=== PATIENT | female | born 1940 | race Caucasian/White ===

== ENCOUNTER 2016-07-30 22:34 | Inpatient (IN) | payer MEDICARE, BC ==
--- NOTE | ~2016-07-30 | HP ---
History And Physical [address] [address] NAME: AXEL CAMPBELL : 38 STATUS : ADM IN [facility]#: [id number] AGE: 75 ADM/REG DATE : 07/31/16 MR#: [id number] REPORT SERV DATE: 07/31/16 DICTATED BY: AG PIPER DATE: 07/31/16 REPORT STATUS : Draft TRANSCRIBED BY: MODL DATE: 07/31/16 DATE OF ADMISSION: 07/31/2016 CHIEF COMPLAINT: A 75-year-old female, presenting with shortness of breath and chest pain. HISTORY OF PRESENT ILLNESS: The patient's history was obtained through careful interview with the patient, coupled with review of [facility] and [facility] medical records. The patient just on 07/27/2016 began to develop a nonproductive cough, increasing shortness of breath characterized by dyspnea on exertion. She describes subjective fevers and chills and becoming "sopping wet" from diaphoresis. She describes chest discomfort, felt diffusely and aching quality, right greater than left, 8 to 9/10 severity, exacerbated by coughing and breathing. No confusion. No lightheadedness. No diarrhea. No nausea or vomiting. She admits her diabetes has been poorly controlled recently with blood sugars often in the 200s and 300s. REVIEW OF SYSTEMS: Otherwise, a 14-point review of systems was obtained and was negative. PAST MEDICAL HISTORY: 1. DVT/pulmonary embolism in 2013, on chronic anticoagulation. 2. Diabetes. 3. Stasis ulcers. 4. Gout. 5. Anemia. 6. Dyslipidemia. 7. B12 deficiency. 8. MRSA. 9. Foot infection with osteomyelitis. PAST SURGICAL HISTORY: 1. Left heel debridement. 2. CABG in 2006. 3. Bilateral knee surgery. 4. Cholecystectomy. 5. Appendectomy. 6. Tubal ligation. 7. Left carpal tunnel release. ALLERGIES: NO KNOWN DRUG ALLERGIES. History And Physical [address] [address] NAME: AXEL CAMPBELL : 38 STATUS : ADM IN PAT#: [id number] AGE: 75 ADM/REG DATE : 07/31/16 MR#: [id number] REPORT SERV DATE: 07/31/16 DICTATED BY: AG PIPER DATE: 07/31/16 REPORT STATUS : Draft TRANSCRIBED BY: JACOBY DATE: 07/31/16 SOCIAL HISTORY: Quit smoking in her 30s. No alcohol use. She is a . Now has been rehabilitating at [facility] in [place], [place]. Has six children. FAMILY HISTORY: Adopted. CURRENT MEDICATIONS: Include allopurinol 150 mg p.o. daily, vitamin C, vitamin B complex, Invokana 300 mg p.o. daily, vitamin D, vitamin B12, diclofenac 75 mg p.o. b.i.d., folic acid, Neurontin 300 mg p.o. b.i.d., sliding scale insulin, Lantus 32 units subcutaneous at bedtime, Novolin N 28 units subcutaneous before breakfast, Claritin 10 mg p.o. daily, Lopressor 25 mg p.o. b.i.d., eye drops, Percocet p.r.n., MiraLAX packet, Coumadin alternating doses of 2.5 and 5 mg every other day. PHYSICAL EXAMINATION: VITAL SIGNS: Temperature 98.8, pulse 93, blood pressure 117/81, respiratory rate 22, O2 saturation 94% on 2 L nasal cannula. GENERAL: An ill-appearing female, but in no overt distress. HEENT: Pupils equal, round, and reactive to light. No conjunctival pallor. No scleral icterus. Nares are patent. Oropharynx is clear of obstruction. Moist mucous membranes. NECK: Trachea midline. No thyromegaly. LYMPH: No cervical lymphadenopathy. No supraclavicular lymphadenopathy. RESPIRATORY: The patient has crackles and rales on examination. I do not appreciate focal egophony, but something of her exam does have a "wet" character. No active wheezes at this time. The patient has a labored respiratory effort. CARDIOVASCULAR: Regular rate and rhythm. No murmurs, rubs, or gallops. There is some mild lower extremity edema, but it is nonpitting. Symmetrical. ABDOMEN: Seems distended by my examination. No tympanic resonance on percussion. Nontender throughout. No hepatosplenomegaly. DERMATOLOGICAL: Warm and dry extremities. No pallor. No cyanosis. PSYCHIATRIC: Normal affect. Good mood. Alert and oriented x3. LABORATORY DATA: ABG demonstrates a pH 7.38, a PaCO2 of 49, a PaO2 of 76, and a bicarb of 28. White blood cell count 9.3, hemoglobin 13, hematocrit 40, platelets 234. Sodium 142, potassium 5.2, chloride 107, bicarb 31, BUN 38, creatinine 1.61, glucose 282. Brain natriuretic peptide 137. Troponin negative. Albumin 2.6. Lipase 303. Lactic acid 1.7. INR 2.3. Liver enzymes within normal limits. STUDIES: 1. Chest x-ray by my own evaluation shows right greater than left lower lung infiltrates and right hilar disease, bilateral pleural effusions. 2. EKG by my own evaluation shows sinus rhythm, left axis deviation, T-wave inversions in leads V2 through V6, II, III, aVF. ASSESSMENT AND PLAN: 1. Hypoxic respiratory failure. I believe the total picture is not completely clear, something out of presentation seems likely to involve pneumonia, yet the patient has a normal white blood cell count and likely there is some volume overload by exam and presentation, but unimpressive brain natriuretic peptide. History And Physical [address] [address] NAME: AXEL CAMPBELL : 38 STATUS : ADM IN [facility]#: [id number] AGE: 75 ADM/REG DATE : 07/31/16 MR#: [id number] REPORT SERV DATE: 07/31/16 DICTATED BY: AG PIPER DATE: 07/31/16 REPORT STATUS : Draft TRANSCRIBED BY: JACOBY DATE: 07/31/16 2. Facility-acquired pneumonia. Check blood cultures. Place on IV vancomycin, IV cefepime. 3. Volume overload. Check an echocardiogram to define function (no previous history of congestive heart failure). Place on IV diuretic empirically. 4. Uncontrolled diabetes. Check hemoglobin A1c. Increase basal insulin dosage and place on aggressive sliding scale insulin. 5. History of pulmonary embolism with good INR. Continue Coumadin. KPL/MODL Ag Piper M.D. / [id number] CC: MD Sridhar Ruth M.D.
--- NOTE | ~2016-07-30 | DS ---
Discharge Summary [address] [place]. [address] NAME: AXEL CAMPBELL : 38 STATUS : DIS IN PAT#: [id number] AGE: 75 ADM/REG DATE : 07/31/16 MR#: [id number] REPORT SERV DATE: 08/04/16 DICTATED BY: BURT PETE DATE: 08/03/16 REPORT STATUS : Draft TRANSCRIBED BY: JACOBY DATE: 08/03/16 ADMISSION DATE: 07/31/2016 DISCHARGE DATE: 08/03/2016 DISCHARGE DIAGNOSES: 1. Ffwrf-wo-xvehhni hypercapnic hypoxic respiratory failure. 2. Qyppo-na-kmqiykr diastolic heart failure. 3. Urinary tract infection. 4. Insulin-dependent diabetes type 2. 5. History of deep vein thrombosis/pulmonary embolus on Coumadin with INR of 2.1. 6. Chronic kidney disease stage 3. 7. Hypertension. DISCHARGE MEDICATIONS: Include: 1. Allopurinol 150 mg p.o. daily. 2. GenTeal drop every four hours p.r.n. 3. Vitamin D3 at 2000 units p.o. daily. 4. Folic acid 1 mg p.o. daily. 5. Neurontin 300 mg p.o. b.i.d. 6. Insulin glargine 32 units subcu at bedtime. 7. Insulin Aspart sliding scale as directed. 8. Novolin N 28 units subcu before breakfast. 9. Claritin 10 mg in the morning. 10.Lopressor 25 mg p.o. b.i.d. 11.Mycostatin topical powder b.i.d. 12.MiraLAX powder Saturday and Saturday. 13.Dotty-Colace tab 8.6 mg one tab daily. 14.Coumadin 5 mg Saturday, Saturday, and Saturday. 15.Coumadin 2.5 mg Saturday, , Saturday, and Saturday. 16.Vitamin B12 at 1000 mcg p.o. daily. 17.Invokana 300 mg p.o. daily. 18.Nephro-Karli one tab p.o. daily. 19.Vitamin C 500 mg p.o. b.i.d. 20.Voltaren 75 mg p.o. b.i.d. p.r.n. 21. 0.5 inch at bedtime. 22.Percocet 5/325 p.o. every four hours p.r.n. 23.Ventolin 90 mcg HFA one to two puffs q.4 to 6 hours p.r.n. 24.Lasix 20 mg p.o. daily. 25.Levaquin 750 mg p.o. daily. 26.Advair Diskus 250/50 mcg one puff inhaled b.i.d. DISPOSITION AND FOLLOWUP: The patient medically stable to return to rehab facility. Follow up with primary care physician in one week. HISTORY AND PHYSICAL: Per initial assessment. Discharge Summary [address] [address] NAME: AXEL CAMPBELL : 38 STATUS : DIS IN PAT#: [id number] AGE: 75 ADM/REG DATE : 07/31/16 MR#: [id number] REPORT SERV DATE: 08/04/16 DICTATED BY: BURT PETE DATE: 08/03/16 REPORT STATUS : Draft TRANSCRIBED BY: JACOBY DATE: 08/03/16 DISCHARGE VITALS: Temperature 96.9, heart rate 88, blood pressure 121/59, respiratory rate 18, O2 saturation 93 on room air. DISCHARGE LABS: WBC of 8.7, hemoglobin 13.4, hematocrit 40.7, platelets 255. INR 2.1. Sodium 138, potassium 3.9, chloride 100, bicarb 32, BUN 53, creatinine 1.76, magnesium 2.2. IMAGING: Chest x-ray, 07/30/2016, impression, pulmonary vascular congestion. Chest x-ray, 08/02/2016, one prior CABG and evidence of previous granulomatous disease. No acute process demonstrated radiographically. Echocardiogram, impression, normal left ventricle size with low normal ventricular systolic function. EF 50%. Mild left ventricular diastolic dysfunction. Normal ventricle size and systolic function. Mild aortic mitral and tricuspid regurgitation. No pericardial effusion. No evidence of pleural effusion. HOSPITAL COURSE: A 75-year-old woman with a past medical history of chronic diastolic heart failure and history of DVT and PE, on Coumadin, comes into the ED complaining of shortness of breath and chest pain. She had been feeling subjective fevers and chills. On admission, evidence of hypoxic hypercapnic respiratory failure. Multifactorial. Initially question of pneumonia. Had some evidence of acute diastolic heart failure. The patient was admitted and placed on IV vancomycin and cefepime, which we continued throughout the course of the hospitalization. Blood cultures negative. Urine culture positive. The patient was diuresed. As described above, chest x-ray by the day of discharge, without any evidence of vascular congestion. Echocardiogram without any wall motion abnormalities. On discharge, we will continue low-dose Lasix. Follow up with primary care physician in one week to recheck renal function. Hypercapnia suggests some obstructive lung disease, although no diagnosis as such. Recommend PCP refer for pulmonary function test as an outpatient. The patient will be discharged on rescue inhalers Advair for maintenance. On discharge, continue antibiotics for three more days to complete seven-day course. Instructed to take all medications as directed. Further management as an outpatient. Total time for discharge planning, 35 minutes. DICTATED BY: MD ALLYN Ruth/JACOBY Anna Gibson MD / [id number] CC: Discharge Summary [address] [address] NAME: AXEL CAMPBELL : 38 STATUS : DIS IN PAT#: [id number] AGE: 75 ADM/REG DATE : 07/31/16 MR#: [id number] REPORT SERV DATE: 08/04/16 DICTATED BY: BURT PETE DATE: 08/03/16 REPORT STATUS : Draft TRANSCRIBED BY: MODL DATE: 08/03/16 Anna Gibson MD
[~2016-07-30 22:34] MED LIST: ALAVERT10 MG PO; ASAB PO; CENTRUM TAB1 TAB PO; CLARIT10 PO; DSS PO; FERROUS SULF325 M1 PO; FOLIC PO; GLUCOTROL5 PO; INSNOVN SC; IRON PO; IRON325 MG PO; L40 PO; LEVEMIR SC; LEVOFLOXACIN IV; LOP25 PO; LOP50 PO; LORT7 PO; LORTAB10 PO; MIRALAXPKT PO; MULTIPLE VIT PO; NEPHRO PO; NEUR300 PO; NITROSTAT0.4 MG SL; NORCO1 TAB PO; NOVOLOG SC; PENTOXIL400 MG PO; PEP20 PO; PRAVACHOL40 MG PO; ROCALTROL0.25 MCG OR; SENTAB PO; T PO; TRAZ50 PO; VANCO1P IV; VITAMIN D31000 UNIT PO; Z300 PO; ZESTRIL30 MG PO
[2016-07-30 22:46] LABS: BASOPHILS 0.1 %; BASOPHILS ABSOLUTE 0.01 10/3/uL (0.0-0.16); EOSINOPHILS 3.7 %; EOSINOPHILS ABSOLUTE 0.34 10/3/uL (0.0-0.53); ER CBC TAT 0 Hrs 05 Mins; HEMATOCRIT 39.9 % (36.0-48.0); HEMOGLOBIN 12.8 g/dL (12.0-16.0); IMMATURE GRANULOCYTES 0.3 %; IMMATURE GRANULOCYTES ABSOLUTE 0.03 10/3/uL (0.0-0.11); LYMPHOCYTES 8.6 %; MEAN CORPUS HGB CONC 32.1 g/dL (32.0-36.0); MEAN CORPUSCULAR HEMOGLOB 30.6 pg (26.0-34.0); MEAN CORPUSCULAR VOLUME 95.5 fL (80-100); MEAN PLATELET VOLUME 10.5 fL (9.2-13.0); MONOCYTES 5.2 %; MONOCYTES ABSOLUTE 0.48 10/3/uL (0.21-1.20); NEUTROPHILS 82.1 %; NEUTROPHILS ABSOLUTE 7.65 10/3/uL (2.02-8.40); PLATELET COUNT 234 10/3/uL (150-400); RBC DISTRIBUTION WIDTH 14.4 % (12.0-16.0); RED CELL COUNT 4.18 10/6/uL (4.0-5.6); WHITE BLOOD CELLS 9.3 10/3/uL (4.5-10.5)
[2016-07-30 22:47] LABS: MANUAL DIFF NO %
[2016-07-30 22:54] LABS: INTERNATIONAL NORMAL RATI 2.3 UNITS (-); PARTIAL THROMBO TIME 69.9 SEC (22.5-37.2); PROTIME (NOT ORD) 24.7 SEC (12.0-14.5)
[2016-07-30 22:54] LABS: BE (BASE EXCESS) 2.1 MEQ/L (0 +/- 2.5); DEVICE NC; HCO3 (ACTUAL BICARBONATE) 28.2 MEQ/L (23-27); INSTRUMENT SERIAL # 8087; PCO2 (CO2 TENSION) 49 MMHG (35-45); PO2 (O2 TENSION) 76 MMHG (79-93); SAMPLE Arterial; pH 7.38 (7.37-7.43)
[2016-07-30 23:05] LABS: A/G RATIO 0.6 (0.7-1.9); ALBUMIN 2.6 G/DL (3.5-5.0); ALKALINE PHOSPHATASE 83 U/L (45-117); BUN (BLOOD UREA NITROGEN) 38 MG/DL (6-23); CHLORIDE, SERUM 107 MMOL/L (96-112); CO2 (CARBON DIOXIDE) 31 MMOL/L (24-34); CREATININE 1.61 MG/DL (0.55-1.02); GFR AFRICAN AMERICAN 35 ML/MIN (>=60); GFR NON AFRICAN AMERICAN 31 ML/MIN (>=60); GLOBULIN 4.6 G/DL (2.5-4.1); GLUCOSE, SERUM 282 MG/DL (60-99); POTASSIUM, SERUM 5.2 MMOL/L (3.5-5.3); SGOT(AST) 28 U/L (5-40); SGPT(ALT) 37 U/L (5-65); SODIUM, SERUM 142 MMOL/L (135-148); TOTAL BILIRUBIN 0.6 MG/DL (0-1.2); TOTAL PROTEIN 7.2 G/DL (6.0-8.5); TROPONIN I 0.02 NG/ML (<0.05)
[2016-07-30] MEDS ORDERED: TOUJEO SC (23:12)
[2016-07-30] MEDS ORDERED: INSNOVN SC (23:14)
[2016-07-30] MEDS ORDERED: NOVOPEN SC (23:18)
[2016-07-30] MEDS ORDERED: Z300 PO (23:19)
[2016-07-30] MEDS ORDERED: CYANO1000T PO (23:19)
[2016-07-30] MEDS ORDERED: INVOKANA300 MG PO (23:19)
[2016-07-30] MEDS ORDERED: CLARIT10 PO (23:20)
[2016-07-30] MEDS ORDERED: NEPHRO-VITE PO (23:20)
[2016-07-30] MEDS ORDERED: FOLIC PO (23:20)
[2016-07-30] MEDS ORDERED: PERI-COLACE1 TAB PO (23:21)
[2016-07-30] MEDS ORDERED: VITAMIN D31000 UNIT PO (23:21)
[2016-07-30] MEDS ORDERED: MIRALAX POWDER1 PKT PO (23:23)
[2016-07-30] MEDS ORDERED: NYSTATPOW TOP (23:23)
[2016-07-30] MEDS ORDERED: VITC500 PO (23:23)
[2016-07-30] MEDS ORDERED: NEUR300 PO (23:24)
[2016-07-30] MEDS ORDERED: VOLT75 PO (23:24)
[2016-07-30] MEDS ORDERED: LOP25 PO (23:24)
[2016-07-30] MEDS ORDERED: C25 PO (23:25)
[2016-07-30] MEDS ORDERED: C5 PO (23:25)
[2016-07-30] MEDS ORDERED: LACRILUBEO OPH (23:26)
[2016-07-30] MEDS ORDERED: GENTEA2 OPH (23:28)
[2016-07-30 23:30] LABS: LACTATE 1.7 MMOL/L (0.3-2.4)
[2016-07-30] MEDS ORDERED: PERCOCET 10/3251 TAB PO (23:30)
[2016-07-31 04:46] LABS: BASOPHILS 0.2 %; BASOPHILS ABSOLUTE 0.02 10/3/uL (0.0-0.16); EOSINOPHILS 0.2 %; EOSINOPHILS ABSOLUTE 0.02 10/3/uL (0.0-0.53); HEMOGLOBIN 13.3 g/dL (12.0-16.0); IMMATURE GRANULOCYTES 0.3 %; IMMATURE GRANULOCYTES ABSOLUTE 0.03 10/3/uL (0.0-0.11); LYMPHOCYTES 5.5 %; LYMPHOCYTES ABSOLUTE 0.54 10/3/uL (0.67-4.30); MANUAL DIFF NO %; MEAN CORPUS HGB CONC 31.7 g/dL (32.0-36.0); MEAN CORPUSCULAR HEMOGLOB 30.2 pg (26.0-34.0); MEAN CORPUSCULAR VOLUME 95.2 fL (80-100); MEAN PLATELET VOLUME 10.7 fL (9.2-13.0); MONOCYTES 0.7 %; MONOCYTES ABSOLUTE 0.07 10/3/uL (0.21-1.20); NEUTROPHILS 93.1 %; NEUTROPHILS ABSOLUTE 9.13 10/3/uL (2.02-8.40); PLATELET COUNT 235 10/3/uL (150-400); RBC DISTRIBUTION WIDTH 14.2 % (12.0-16.0); RED CELL COUNT 4.41 10/6/uL (4.0-5.6); WHITE BLOOD CELLS 9.8 10/3/uL (4.5-10.5)
[2016-07-31 04:53] LABS: INTERNATIONAL NORMAL RATI 2.3 UNITS (-); PROTIME (NOT ORD) 25.2 SEC (12.0-14.5)
[2016-07-31 05:06] LABS: B NATRIURETIC PEPTIDE (BNP) 203.9 PG/ML (< 100.0)
[2016-07-31 05:13] LABS: A/G RATIO 0.6 (0.7-1.9); ALBUMIN 2.8 G/DL (3.5-5.0); ALKALINE PHOSPHATASE 79 U/L (45-117); BUN (BLOOD UREA NITROGEN) 39 MG/DL (6-23); CALCIUM, SERUM 9.9 MG/DL (8.5-10.4); CHLORIDE, SERUM 108 MMOL/L (96-112); CREATININE 1.65 MG/DL (0.55-1.02); GFR AFRICAN AMERICAN 34 ML/MIN (>=60); GFR NON AFRICAN AMERICAN 30 ML/MIN (>=60); GLUCOSE, SERUM 330 MG/DL (60-99); PHOSPHORUS, SERUM 2.1 MG/DL (2.5-4.5); POTASSIUM, SERUM 5.2 MMOL/L (3.5-5.3); SGOT(AST) 26 U/L (5-40); SGPT(ALT) 38 U/L (5-65); SODIUM, SERUM 141 MMOL/L (135-148); TOTAL BILIRUBIN 0.6 MG/DL (0-1.2); TOTAL PROTEIN 7.8 G/DL (6.0-8.5)
[2016-07-31 05:16] LABS: CO2 (CARBON DIOXIDE) 25 MMOL/L (24-34)
[2016-07-31 05:17] LABS: TROPONIN I 0.05 NG/ML (<0.05)
[2016-07-31 05:48] LABS: PROCALCITONIN 0.35 ng/mL (<0.5)
[2016-07-31 10:00] LABS: GLYCOHEMOGLOBIN (HbA1c) 7.2 % (4.7-6.1)
[2016-07-31 11:25] LABS: ASCORBIC ACID (UR NOT ORDER) 20 (NEG); BILIRUBIN, URINE NEGATIVE (NEG); KETONE, URINE NEGATIVE (NEG); LEUKOCYTE ESTERASE(NOT OR LARGE (NEG); WBC (NOT ORDERED) (RFLEX) 25 (0-5)
[2016-08-01 04:05] LABS: BASOPHILS 0.2 %; BASOPHILS ABSOLUTE 0.03 10/3/uL (0.0-0.16); EOSINOPHILS 1.2 %; EOSINOPHILS ABSOLUTE 0.15 10/3/uL (0.0-0.53); HEMATOCRIT 40.3 % (36.0-48.0); HEMOGLOBIN 12.7 g/dL (12.0-16.0); IMMATURE GRANULOCYTES 0.5 %; IMMATURE GRANULOCYTES ABSOLUTE 0.06 10/3/uL (0.0-0.11); LYMPHOCYTES 10.4 %; LYMPHOCYTES ABSOLUTE 1.32 10/3/uL (0.67-4.30); MEAN CORPUS HGB CONC 31.5 g/dL (32.0-36.0); MEAN CORPUSCULAR HEMOGLOB 29.7 pg (26.0-34.0); MEAN CORPUSCULAR VOLUME 94.4 fL (80-100); MEAN PLATELET VOLUME 10.1 fL (9.2-13.0); MONOCYTES 6.3 %; NEUTROPHILS 81.4 %; NEUTROPHILS ABSOLUTE 10.32 10/3/uL (2.02-8.40); PLATELET COUNT 257 10/3/uL (150-400); RBC DISTRIBUTION WIDTH 14.3 % (12.0-16.0); RED CELL COUNT 4.27 10/6/uL (4.0-5.6); WHITE BLOOD CELLS 12.7 10/3/uL (4.5-10.5)
[2016-08-01 04:06] LABS: MANUAL DIFF NO %
[2016-08-01 04:11] LABS: INTERNATIONAL NORMAL RATI 2.6 UNITS (-); PROTIME (NOT ORD) 27.2 SEC (12.0-14.5)
[2016-08-01 04:17] LABS: CALCIUM, SERUM 9.4 MG/DL (8.5-10.4); CHLORIDE, SERUM 105 MMOL/L (96-112); CREATININE 1.44 MG/DL (0.55-1.02); GFR AFRICAN AMERICAN 40 ML/MIN (>=60); GFR NON AFRICAN AMERICAN 35 ML/MIN (>=60); POTASSIUM, SERUM 4.2 MMOL/L (3.5-5.3); SODIUM, SERUM 141 MMOL/L (135-148)
[2016-08-01 04:22] LABS: BUN (BLOOD UREA NITROGEN) 45 MG/DL (6-23); CO2 (CARBON DIOXIDE) 31 MMOL/L (24-34); GLUCOSE, SERUM 94 MG/DL (60-99)
[2016-08-02 06:51] LABS: BASOPHILS 0.2 %; BASOPHILS ABSOLUTE 0.02 10/3/uL (0.0-0.16); EOSINOPHILS 4.5 %; EOSINOPHILS ABSOLUTE 0.46 10/3/uL (0.0-0.53); HEMATOCRIT 41.8 % (36.0-48.0); HEMOGLOBIN 13.4 g/dL (12.0-16.0); IMMATURE GRANULOCYTES 0.4 %; IMMATURE GRANULOCYTES ABSOLUTE 0.04 10/3/uL (0.0-0.11); LYMPHOCYTES 9.4 %; LYMPHOCYTES ABSOLUTE 0.96 10/3/uL (0.67-4.30); MANUAL DIFF NO %; MEAN CORPUS HGB CONC 32.1 g/dL (32.0-36.0); MEAN CORPUSCULAR VOLUME 93.7 fL (80-100); MEAN PLATELET VOLUME 10.7 fL (9.2-13.0); MONOCYTES 7.7 %; MONOCYTES ABSOLUTE 0.79 10/3/uL (0.21-1.20); NEUTROPHILS 77.8 %; NEUTROPHILS ABSOLUTE 7.96 10/3/uL (2.02-8.40); PLATELET COUNT 255 10/3/uL (150-400); RBC DISTRIBUTION WIDTH 14.4 % (12.0-16.0); RED CELL COUNT 4.46 10/6/uL (4.0-5.6); WHITE BLOOD CELLS 10.2 10/3/uL (4.5-10.5)
[2016-08-02 06:53] LABS: INTERNATIONAL NORMAL RATI 2.4 UNITS (-); PROTIME (NOT ORD) 25.5 SEC (12.0-14.5)
[2016-08-02 07:03] LABS: BUN (BLOOD UREA NITROGEN) 49 MG/DL (6-23); CALCIUM, SERUM 9.4 MG/DL (8.5-10.4); CHLORIDE, SERUM 101 MMOL/L (96-112); CO2 (CARBON DIOXIDE) 31 MMOL/L (24-34); CREATININE 1.55 MG/DL (0.55-1.02); GFR AFRICAN AMERICAN 37 ML/MIN (>=60); GFR NON AFRICAN AMERICAN 32 ML/MIN (>=60); GLUCOSE, SERUM 99 MG/DL (60-99); POTASSIUM, SERUM 4.2 MMOL/L (3.5-5.3); SODIUM, SERUM 139 MMOL/L (135-148)
[2016-08-03 07:05] LABS: BASOPHILS 0.2 %; BASOPHILS ABSOLUTE 0.02 10/3/uL (0.0-0.16); EOSINOPHILS 3.6 %; EOSINOPHILS ABSOLUTE 0.31 10/3/uL (0.0-0.53); HEMATOCRIT 40.7 % (36.0-48.0); HEMOGLOBIN 13.4 g/dL (12.0-16.0); IMMATURE GRANULOCYTES 0.6 %; IMMATURE GRANULOCYTES ABSOLUTE 0.05 10/3/uL (0.0-0.11); LYMPHOCYTES 11.1 %; LYMPHOCYTES ABSOLUTE 0.97 10/3/uL (0.67-4.30); MEAN CORPUS HGB CONC 32.9 g/dL (32.0-36.0); MEAN CORPUSCULAR HEMOGLOB 30.5 pg (26.0-34.0); MEAN CORPUSCULAR VOLUME 92.5 fL (80-100); MEAN PLATELET VOLUME 10.8 fL (9.2-13.0); MONOCYTES 5.4 %; MONOCYTES ABSOLUTE 0.47 10/3/uL (0.21-1.20); NEUTROPHILS 79.1 %; PLATELET COUNT 255 10/3/uL (150-400); RBC DISTRIBUTION WIDTH 14.2 % (12.0-16.0); WHITE BLOOD CELLS 8.7 10/3/uL (4.5-10.5)
[2016-08-03 07:07] LABS: MANUAL DIFF NO %
[2016-08-03 07:08] LABS: INTERNATIONAL NORMAL RATI 2.1 UNITS (-); PROTIME (NOT ORD) 23.6 SEC (12.0-14.5)
[2016-08-03 07:15] LABS: CALCIUM, SERUM 9.1 MG/DL (8.5-10.4); CHLORIDE, SERUM 100 MMOL/L (96-112); CO2 (CARBON DIOXIDE) 32 MMOL/L (24-34); CREATININE 1.76 MG/DL (0.55-1.02); GFR AFRICAN AMERICAN 32 ML/MIN (>=60); GFR NON AFRICAN AMERICAN 27 ML/MIN (>=60); POTASSIUM, SERUM 3.9 MMOL/L (3.5-5.3); SODIUM, SERUM 138 MMOL/L (135-148); VANCOMYCIN TROUGH 14.7 MCG/ML (10.0-20.0)
[2016-08-03 07:17] LABS: BUN (BLOOD UREA NITROGEN) 53 MG/DL (6-23); GLUCOSE, SERUM 160 MG/DL (60-99)
== END 2016-08-03 23:02 | DRG 291 ==
LOC: ER 22:34 → 6NO 07-31 00:08
PROVIDERS: Emergency Medicine; Hospitalist; Internal Medicine
DX: I13.0 Hypertensive heart and chronic kidney disease with heart failure and stage 1 through stage 4 chronic kidney disease, or unspecified chronic kidney disease (principal); J96.22 Acute and chronic respiratory failure with hypercapnia; J96.21 Acute and chronic respiratory failure with hypoxia; E11.22 Type 2 diabetes mellitus with diabetic chronic kidney disease; I50.33 Acute on chronic diastolic (congestive) heart failure; N39.0 Urinary tract infection, site not specified; E11.65 Type 2 diabetes mellitus with hyperglycemia; N18.3 Chronic kidney disease, stage 3 (moderate); I25.10 Atherosclerotic heart disease of native coronary artery without angina pectoris; E78.5 Hyperlipidemia, unspecified; Z86.718 Personal history of other venous thrombosis and embolism; Z86.711 Personal history of pulmonary embolism; Z79.4 Long term (current) use of insulin; Z95.1 Presence of aortocoronary bypass graft; Z90.49 Acquired absence of other specified parts of digestive tract; Z87.891 Personal history of nicotine dependence
CPT/HCPCS: 36600; 71010; 80048; 80053; 80202; 81001; 82805; 82962; 83036; 83605; 83690; 83735; 83880; 84100; 84145; 84443; 84484; 85025; 85610; 85730; 87040; 87077; 87086; 87186; 87449; 93005; 94640; 96365; 96367; 96375; 97162-GP; 99285; A9270-GY; C8929; G8978-CL-GP; G8979-CL-GP; J0360; J0692; J1940; J2930; J3370; Q9957

== ENCOUNTER 2016-08-15 20:47 | Inpatient (IN) | payer MEDICARE, BC ==
--- NOTE | ~2016-08-15 | DS ---
Discharge Summary [facility] [address] [place]. [address] NAME: AXEL CAMPBELL : 38 STATUS : DIS IN PAT#: [id number] AGE: 75 ADM/REG DATE : 08/16/16 MR#: [id number] REPORT SERV DATE: 08/20/16 DICTATED BY: CARLO HELTON DATE: 08/17/16 REPORT STATUS : Draft TRANSCRIBED BY: MODL DATE: 08/17/16 ADMISSION DATE: 08/15/2016 DISCHARGE DATE: 08/17/2016 DISCHARGE DIAGNOSES: 1. Acute on chronic hypoxemic respiratory failure. 2. Sleep apnea. 3. Hypotension due to dehydration, now resolved. 4. Acute on chronic kidney disease, currently improving. 5. Chronic diastolic congestive heart failure, currently compensated. 6. Type 2 diabetes mellitus. 7. History of pulmonary embolism. 8. History of deep venous thrombosis. 9. Hypertension. 10.Gout. 11.Coronary artery disease with coronary artery bypass graft. PROCEDURES: Invasive procedures done during this hospitalization, none. CONSULTANTS: Consultants during this hospitalization, none. BRIEF HISTORY OF PRESENT ILLNESS: The patient is a 75-year-old female who presented from [facility] after being in the hospital recently, came with an O2 saturation of about 86% to 89%. She was admitted. For a detailed history and physical exam, please see note dictated by Dr. Skyler Leon on 08/15/2016. HOSPITAL COURSE: After being admitted to the hospital, this patient was provided with oxygen support, aggressive nebulizing treatments, and IV steroids were done. When I saw the patient, the patient had metabolic encephalopathy, which quickly resolved once we supplemented the oxygen and treated her. The urine did look like she may have had some infection, however, urine culture is pending. Based on the urine culture done on 08/01/2016, we are going to treat her for Enterobacter with p.o. ampicillin for seven days. This patient was able to be weaned off her oxygen. Now, she has normal room air saturation. She feels well and wants to go back to [facility]. Her BUN is 55 and her creatinine is 1.99. At this time, I have recommended not to restart Lasix for three days, discontinue Voltaren as this may cause some problems, and will also discontinue all potassium supplements. Otherwise, she remained stable and is being discharged in stable condition. DISCHARGE DISPOSITION: To [facility]. DISCHARGE ACTIVITY: Per facility. DISCHARGE DIET: An 1800-calorie [place] [employer] diet. DISCHARGE MEDICATIONS: Allopurinol 150 mg once every morning; vitamin C 500 mg twice daily; vitamin B12 1000 mcg once every morning; vitamin D3 2000 units once every morning; Voltaren Discharge Summary [address] [address] NAME: AXEL CAMPBELL : 38 STATUS : DIS IN PAT#: [id number] AGE: 75 ADM/REG DATE : 08/16/16 MR#: [id number] REPORT SERV DATE: 08/20/16 DICTATED BY: CARLO HELTON DATE: 08/17/16 REPORT STATUS : Draft TRANSCRIBED BY: JACOBY DATE: 08/17/16 75 mg p.o. with breakfast and supper, do not resume this until creatinine is less than 1.0; folic acid 1 mg p.o. every morning; gabapentin 300 mg twice daily; Toujeo 32 units subcutaneously once at bedtime; NovoLog sliding scale; Claritin 10 mg p.o. every morning; Lopressor 25 mg twice daily; MiraLAX one packet daily on Mondays and Fridays; Dotty-Colace one tablet every morning; warfarin 5 mg Saturday, Saturday, and Saturday and 2.5 mg on all other days; Advair Diskus 250/150 one puff twice daily; Ventolin HFA two puffs every six hours p.r.n.; Refresh Artificial Tears; Novolin 28 units subcutaneously before breakfast, hold for blood sugar less than 100; Invokana 300 mg every morning; Karen-Karli one tablet once every morning; Lasix 10 mg once daily, not to be restarted until creatinine 1.0; and ampicillin 500 mg p.o. t.i.d. for seven days. DISCHARGE FOLLOWUP: With the physicians at [facility]. More than 35 minutes spent planning this patient's discharge, reconciling medications, discussing hospital care with the patient, documenting this discharge, signing all forms for discharge as well. DICTATED BY: Dat Mcnamara/JACOBY Carlo Helton M.D. / [id number] CC: Dat Echols M.D. [facility]
--- NOTE | ~2016-08-15 | HP ---
History And Physical [address] [place]. [address] NAME: AXEL CAMPBELL : 38 STATUS : ADM Keila PAT#: [id number] AGE: 75 ADM/REG DATE : 08/15/16 MR#: [id number] REPORT SERV DATE: 08/16/16 DICTATED BY: SKYLER OMRATAYA DATE: 08/16/16 REPORT STATUS : Draft TRANSCRIBED BY: MODL DATE: 08/16/16 DATE OF ADMISSION: 08/15/2016 CHIEF COMPLAINT: Hypotension, hypoxemia, and mild confusion. HISTORY OF PRESENT ILLNESS: This is a 75-year-old female who has a history of chronic hypoxic hypercapnic respiratory failure, history of chronic diastolic congestive heart failure, history of pulmonary embolus and DVT, on warfarin therapy, who is a resident at [facility], was recently discharged from this facility on 08/04/2016 about 11 days ago. She was at the facility and in the last two days as become slightly disoriented and very weak, today she was found in front of the nursing station there with shallow breathing, which nurses thought she was having some difficulty breathing. They checked her oxygen saturation, which was about 86 to 89% and her blood pressure was 98/54. They quickly took her to the room, helped onto the bed when suddenly her oxygen saturations dropped further, and her blood pressure dropped as well. They called the medical management trainer there who advised the patient to be taken to the ER right away. When the EMS arrived there, they had recorded that she was indeed hypoxemic. In the emergency room, initial workup revealed an arterial blood gas showing a PaO2 of 64 on room air, she was given IV fluids and her hypotension had resolved. Hospitalist Service was asked to admit her for intravenous volume resuscitation to address her acute on chronic hypercapnic hypoxemic respiratory failure and further management. At the time of my evaluation, Mrs. Campbell was quite alert, awake, oriented to time, place, and person and was answering questions rather well. She was not clear on why she was sent to the hospital, although she was able to tell me some of her symptoms that she had. She knew where she had come from as well. She denied any chest pain or palpitations. She had no orthopnea. She did not have any cough, hemoptysis, night sweats, or weight loss. She has not had any falls or loss of consciousness at this time when she was there. She denied any fevers, chills, nausea, vomiting, diarrhea. No history of bleeding anywhere. She has not had any other recent history of travel or exposures other than those mentioned above. PAST MEDICAL HISTORY: Significant for history of chronic hypoxic respiratory failure, history of chronic diastolic congestive heart failure, insulin-dependent diabetes mellitus, history of pulmonary embolism and DVT on warfarin therapy, chronic kidney disease, hypertension, gout, coronary artery disease with CABG, and history of MRSA in the past. SOCIAL HISTORY: She does not smoke, drink, or use recreational drugs. FAMILY HISTORY: Noncontributory. MEDICATIONS: At home were reviewed by me in the chart today and reordered by me. REVIEW OF SYSTEMS: As in history of present illness. All other systems were reviewed in detail and are quite unremarkable. History And Physical [address] [address] NAME: AXEL CAMPBELL : 38 STATUS : ADM Keila PAT#: [id number] AGE: 75 ADM/REG DATE : 08/15/16 MR#: [id number] REPORT SERV DATE: 08/16/16 DICTATED BY: SKYLER MORATAYA DATE: 08/16/16 REPORT STATUS : Draft TRANSCRIBED BY: JACOBY DATE: 08/16/16 PHYSICAL EXAMINATION: GENERAL: This is a pleasant 75-year-old, not in any acute distress. HEENT: Her head is atraumatic, normocephalic. Pupils are equal, reacting to light and accommodating. External ocular muscles are intact. Membranes are moist and pink. Sclerae are nonicteric. NECK: Supple but thick. No thyromegaly or lymphadenopathy is palpable. LUNGS: Auscultation of her lungs revealed fair to moderate air entry bilaterally with few expiratory wheezes bilaterally as well. CARDIAC: Auscultation of her heart revealed normal rate and rhythm with no murmurs, rubs, or gallops appreciated. ABDOMEN: Soft and nontender. Bowel sounds are present. EXTREMITIES: Showed no cyanosis, clubbing, or edema. NEUROLOGIC: Grossly intact. No focal sensory or motor deficits. Higher functions appeared intact. She is able to move all four extremities. VITAL SIGNS: Her temperature today is 97.8, pulse 85, respirations 20 a minute, blood pressure is 132/36, oxygen saturations are 95% on 4 L via nasal cannula. LABORATORY DATA: Reviewed on the [facility] system showed a pH of 7.39 on arterial blood gas, pCO2 was 47, PO2 64, and bicarb was 27.8, this was on room air. Her CMP showed sodium of 139, potassium 4.5, chloride 102, CO2 of 30, BUN was 62 with a creatinine of 2.63 which is up from her baseline, blood glucose was 197. Troponin was 0.02 and BNP today was 34.1. CBC was essentially within normal limits. Her prothrombin time was 23.6 with an INR of 2.1 today. Urinalysis was not performed today. Films of the chest x-ray that was done today were reviewed by me on the PACS today and interpreted by me. Today's films were compared to prior films available on the PACS as well. Compared to prior films, today's films did not reveal any bony abnormalities. There is prior sternotomy. There is no cardiomegaly. Lung hdez were clear with no lobar consolidations or effusions seen. No EKG was performed in the emergency room today. IMPRESSION: 1. Hypoxemia. 2. Hypotension. 3. Acute on chronic hypoxic hypercapnic respiratory failure. 4. Acute on chronic kidney disease. 5. Chronic diastolic congestive heart failure. 6. Insulin-dependent diabetes mellitus type 2. 7. History of pulmonary embolism, on warfarin therapy. 8. Hypertension. 9. History of MRSA. 10.Gout. 11.Coronary artery disease with CABG. PLAN: We will admit Mrs. Campbell to the Hospitalist Service with telemetry for a 24-hour observation period. We will maximize her bronchodilator treatments, continue supplemental oxygen therapy and start her on corticosteroids intravenously as well. We will start her on IV fluids for volume resuscitation very cautiously given her history of congestive heart History And Physical [address] [address] NAME: AXEL CAMPBELL : 38 STATUS : ADM Keila PAT#: [id number] AGE: 75 ADM/REG DATE : 08/15/16 MR#: [id number] REPORT SERV DATE: 08/16/16 DICTATED BY: SKYLER MORATAYA DATE: 08/16/16 REPORT STATUS : Draft TRANSCRIBED BY: MODL DATE: 08/16/16 failure. We will give her a liter or a liter and a half and then reassess her. We will check her chemistry and CBC in the morning. Meanwhile, we will start her on blood sugar control with NovoLog given subcutaneously per sliding scale. Her A1c was recently checked. We will continue all other medications and treatments at this time as well, and check her PT/INR in the morning. I have discussed the above plans with the patient. Her questions were answered, and she is agreeable to the above recommendations. The patient is a full code. Hospitalist Service will be following her during her stay here. /JACOBY Skyler Morataya M.D. / [id number] CC: Dat Echols M.D.
[~2016-08-15 20:47] MED LIST changes: +C25 PO; +C5 PO; +CYANO1000T PO; +GENTEA2 OPH; +INVOKANA300 MG PO; +LACRILUBEO OPH; +MIRALAX POWDER1 PKT PO; +NEPHRO-VITE PO; +NOVOPEN SC; +NYSTATPOW TOP; +PERCOCET 10/3251 TAB PO; +PERI-COLACE1 TAB PO; +TOUJEO SC; +VITC500 PO; +VOLT75 PO
[2016-08-15 21:42] LABS: BE (BASE EXCESS) 2.3 MEQ/L (0 +/- 2.5); CARBOXYHEMOGLOBIN 1.3 % (0-3); HCO3 (ACTUAL BICARBONATE) 27.8 MEQ/L (23-27); HEMOBLOGIN CONTENT 12.8 G/DL (12-16); INSTRUMENT SERIAL # 8087; METHEMOGLOBIN 0.2 % (0-3); O2 CONTENT 16.2 VOL% (18-24); OPERATOR ID 17589; PCO2 (CO2 TENSION) 47 MMHG (35-45); PO2 (O2 TENSION) 64 MMHG (79-93); SAMPLE Arterial; pH 7.39 (7.37-7.43)
[2016-08-15 22:12] LABS: BASOPHILS 0.4 %; BASOPHILS ABSOLUTE 0.04 10/3/uL (0.0-0.16); EOSINOPHILS 5.8 %; EOSINOPHILS ABSOLUTE 0.52 10/3/uL (0.0-0.53); ER CBC TAT 0 Hrs 05 Mins; HEMATOCRIT 38.3 % (36.0-48.0); HEMOGLOBIN 12.2 g/dL (12.0-16.0); IMMATURE GRANULOCYTES 0.3 %; IMMATURE GRANULOCYTES ABSOLUTE 0.03 10/3/uL (0.0-0.11); LYMPHOCYTES 19.4 %; LYMPHOCYTES ABSOLUTE 1.75 10/3/uL (0.67-4.30); MEAN CORPUS HGB CONC 31.9 g/dL (32.0-36.0); MEAN CORPUSCULAR HEMOGLOB 29.8 pg (26.0-34.0); MEAN CORPUSCULAR VOLUME 93.4 fL (80-100); MEAN PLATELET VOLUME 10.6 fL (9.2-13.0); MONOCYTES 5.4 %; MONOCYTES ABSOLUTE 0.49 10/3/uL (0.21-1.20); NEUTROPHILS 68.7 %; NEUTROPHILS ABSOLUTE 6.18 10/3/uL (2.02-8.40); PLATELET COUNT 208 10/3/uL (150-400)
[2016-08-15 22:13] LABS: MANUAL DIFF NO %
[2016-08-15 22:29] LABS: A/G RATIO 0.5 (0.7-1.9); ALBUMIN 2.7 G/DL (3.5-5.0); CALCIUM, SERUM 9.7 MG/DL (8.5-10.4); CHLORIDE, SERUM 102 MMOL/L (96-112); CO2 (CARBON DIOXIDE) 30 MMOL/L (24-34); POTASSIUM, SERUM 4.5 MMOL/L (3.5-5.3); SGOT(AST) 34 U/L (5-40); SGPT(ALT) 39 U/L (5-65); SODIUM, SERUM 139 MMOL/L (135-148); TOTAL BILIRUBIN 0.6 MG/DL (0-1.2); TOTAL PROTEIN 7.7 G/DL (6.0-8.5); TROPONIN I <0.02 NG/ML (<0.05)
[2016-08-15 22:30] LABS: ALKALINE PHOSPHATASE 60 U/L (45-117); BUN (BLOOD UREA NITROGEN) 62 MG/DL (6-23); CREATININE 2.63 MG/DL (0.55-1.02); GFR AFRICAN AMERICAN 20 ML/MIN (>=60); GFR NON AFRICAN AMERICAN 17 ML/MIN (>=60); GLUCOSE, SERUM 197 MG/DL (60-99)
[2016-08-15] MEDS ORDERED: INSNOVN SC (23:02)
[2016-08-15] MEDS ORDERED: TOUJEO SC (23:02)
[2016-08-15] MEDS ORDERED: NOVOPEN SC (23:04)
[2016-08-15] MEDS ORDERED: CYANO1000T PO (23:04)
[2016-08-15] MEDS ORDERED: RENA-VITE PO (23:05)
[2016-08-15] MEDS ORDERED: Z300 PO (23:05)
[2016-08-15] MEDS ORDERED: INVOKANA300 MG PO (23:05)
[2016-08-15] MEDS ORDERED: CLARIT10 PO (23:06)
[2016-08-15] MEDS ORDERED: FOLIC PO (23:07)
[2016-08-15] MEDS ORDERED: VITAMIN D31000 UNIT PO (23:07)
[2016-08-15] MEDS ORDERED: PERI-COLACE1 TAB PO (23:08)
[2016-08-15] MEDS ORDERED: MIRALAX POWDER1 PKT PO (23:10)
[2016-08-15] MEDS ORDERED: VOLT75 PO (23:11)
[2016-08-15] MEDS ORDERED: VITC500 PO (23:11)
[2016-08-15] MEDS ORDERED: NEUR300 PO (23:12)
[2016-08-15] MEDS ORDERED: LOP25 PO (23:13)
[2016-08-15] MEDS ORDERED: C5 PO (23:13)
[2016-08-15] MEDS ORDERED: C25 PO (23:14)
[2016-08-15] MEDS ORDERED: L20 PO (23:14)
[2016-08-15] MEDS ORDERED: LEVAQUIN750 MG PO (23:15)
[2016-08-15] MEDS ORDERED: REFRESH OPH SO0.3 ML OPH (23:16)
[2016-08-15] MEDS ORDERED: ADVAIR250 INH (23:16)
[2016-08-15] MEDS ORDERED: VENTOLIN HFA INH (23:17)
[2016-08-15] MEDS ORDERED: NORCO1 TAB PO (23:17)
[2016-08-16 05:57] LABS: INTERNATIONAL NORMAL RATI 2.6 UNITS (-); PROTIME (NOT ORD) 27.4 SEC (12.0-14.5)
[2016-08-16 06:05] LABS: BASOPHILS 0.5 %; BASOPHILS ABSOLUTE 0.04 10/3/uL (0.0-0.16); EOSINOPHILS 6.7 %; EOSINOPHILS ABSOLUTE 0.52 10/3/uL (0.0-0.53); HEMATOCRIT 38.2 % (36.0-48.0); HEMOGLOBIN 11.9 g/dL (12.0-16.0); IMMATURE GRANULOCYTES 0.5 %; IMMATURE GRANULOCYTES ABSOLUTE 0.04 10/3/uL (0.0-0.11); LYMPHOCYTES 20.8 %; MEAN CORPUS HGB CONC 31.2 g/dL (32.0-36.0); MEAN CORPUSCULAR HEMOGLOB 29.2 pg (26.0-34.0); MEAN CORPUSCULAR VOLUME 93.6 fL (80-100); MEAN PLATELET VOLUME 10.9 fL (9.2-13.0); MONOCYTES 5.8 %; MONOCYTES ABSOLUTE 0.45 10/3/uL (0.21-1.20); NEUTROPHILS 65.7 %; NEUTROPHILS ABSOLUTE 5.06 10/3/uL (2.02-8.40); PLATELET COUNT 191 10/3/uL (150-400); RBC DISTRIBUTION WIDTH 15.1 % (12.0-16.0); RED CELL COUNT 4.08 10/6/uL (4.0-5.6); WHITE BLOOD CELLS 7.7 10/3/uL (4.5-10.5)
[2016-08-16 06:06] LABS: MANUAL DIFF NO %
[2016-08-16 06:17] LABS: BUN (BLOOD UREA NITROGEN) 60 MG/DL (6-23); CALCIUM, SERUM 9.6 MG/DL (8.5-10.4); CHLORIDE, SERUM 104 MMOL/L (96-112); CK-MB < 0.5 NG/ML; CO2 (CARBON DIOXIDE) 27 MMOL/L (24-34); CPK 32 U/L (0-200); CREATININE 2.44 MG/DL (0.55-1.02); GFR AFRICAN AMERICAN 21 ML/MIN (>=60); GFR NON AFRICAN AMERICAN 18 ML/MIN (>=60); GLUCOSE, SERUM 180 MG/DL (60-99); PHOSPHORUS, SERUM 4.7 MG/DL (2.5-4.5); POTASSIUM, SERUM 4.3 MMOL/L (3.5-5.3); SODIUM, SERUM 140 MMOL/L (135-148); TROPONIN I <0.02 NG/ML (<0.05)
[2016-08-16 10:18] LABS: ASCORBIC ACID (UR NOT ORDER) 40 (NEG); BILIRUBIN, URINE NEGATIVE (NEG); KETONE, URINE NEGATIVE (NEG); LEUKOCYTE ESTERASE(NOT OR LARGE (NEG); WBC (NOT ORDERED) (RFLEX) > 182 (0-5)
[2016-08-16 13:25] LABS: TROPONIN I <0.02 NG/ML (<0.05)
[2016-08-16 13:32] LABS: CK-MB 0.6 NG/ML; CPK 59 U/L (0-200)
[2016-08-17 08:56] LABS: BASOPHILS 0.1 %; BASOPHILS ABSOLUTE 0.01 10/3/uL (0.0-0.16); EOSINOPHILS 0.2 %; EOSINOPHILS ABSOLUTE 0.02 10/3/uL (0.0-0.53); HEMATOCRIT 37.8 % (36.0-48.0); HEMOGLOBIN 11.9 g/dL (12.0-16.0); IMMATURE GRANULOCYTES 0.5 %; IMMATURE GRANULOCYTES ABSOLUTE 0.07 10/3/uL (0.0-0.11); LYMPHOCYTES 8.4 %; LYMPHOCYTES ABSOLUTE 1.08 10/3/uL (0.67-4.30); MEAN CORPUS HGB CONC 31.5 g/dL (32.0-36.0); MEAN CORPUSCULAR HEMOGLOB 29.1 pg (26.0-34.0); MEAN CORPUSCULAR VOLUME 92.4 fL (80-100); MEAN PLATELET VOLUME 10.6 fL (9.2-13.0); MONOCYTES 4.7 %; NEUTROPHILS 86.1 %; NEUTROPHILS ABSOLUTE 11.02 10/3/uL (2.02-8.40); PLATELET COUNT 196 10/3/uL (150-400); RED CELL COUNT 4.09 10/6/uL (4.0-5.6)
[2016-08-17 08:57] LABS: MANUAL DIFF NO %; WHITE BLOOD CELLS 12.8 10/3/uL (4.5-10.5)
[2016-08-17 09:01] LABS: INTERNATIONAL NORMAL RATI 2.7 UNITS (-); PROTIME (NOT ORD) 28.5 SEC (12.0-14.5)
[2016-08-17 09:05] LABS: ALBUMIN 2.7 G/DL (3.5-5.0); CALCIUM, SERUM 9.5 MG/DL (8.5-10.4); CHLORIDE, SERUM 105 MMOL/L (96-112); CO2 (CARBON DIOXIDE) 27 MMOL/L (24-34); CREATININE 1.99 MG/DL (0.55-1.02); GFR AFRICAN AMERICAN 27 ML/MIN (>=60); GFR NON AFRICAN AMERICAN 24 ML/MIN (>=60); PHOSPHORUS, SERUM 3.8 MG/DL (2.5-4.5); SODIUM, SERUM 139 MMOL/L (135-148)
[2016-08-17 09:06] LABS: BUN (BLOOD UREA NITROGEN) 55 MG/DL (6-23); GLUCOSE, SERUM 236 MG/DL (60-99)
== END 2016-08-17 12:04 | DRG 189 ==
LOC: ER 20:47 → 2SO 21:00
PROVIDERS: Emergency Medicine; Hospitalist; Internal Medicine; Internal Medicine Pulmonary Disease
DX: J96.21 Acute and chronic respiratory failure with hypoxia (principal); N17.9 Acute kidney failure, unspecified; G93.41 Metabolic encephalopathy; I13.0 Hypertensive heart and chronic kidney disease with heart failure and stage 1 through stage 4 chronic kidney disease, or unspecified chronic kidney disease; I95.9 Hypotension, unspecified; E11.22 Type 2 diabetes mellitus with diabetic chronic kidney disease; I50.32 Chronic diastolic (congestive) heart failure; N39.0 Urinary tract infection, site not specified; E86.0 Dehydration; J96.22 Acute and chronic respiratory failure with hypercapnia; D64.9 Anemia, unspecified; J44.9 Chronic obstructive pulmonary disease, unspecified; N18.3 Chronic kidney disease, stage 3 (moderate); M10.9 Gout, unspecified; I25.10 Atherosclerotic heart disease of native coronary artery without angina pectoris; G47.33 Obstructive sleep apnea (adult) (pediatric); B96.89 Other specified bacterial agents as the cause of diseases classified elsewhere; Z95.1 Presence of aortocoronary bypass graft; Z86.14 Personal history of Methicillin resistant Staphylococcus aureus infection; Z86.718 Personal history of other venous thrombosis and embolism; Z86.711 Personal history of pulmonary embolism
CPT/HCPCS: 36600; 71010; 71020; 80048; 80053; 80069; 81001; 82550; 82553; 82805; 82962; 83605; 83735; 83880; 84100; 84443; 84484; 85025; 85610; 87040; 87086; 93005; 94640; 97162-GP; 99284; A9270-GY; G8978-CL-GP; G8979-CK-GP; J2930

== ENCOUNTER 2016-11-10 23:05 | Inpatient (IN) | payer MEDICARE, BC ==
[~2016-11-10] VITALS: Ht 162.6 cm; Wt 104.0 kg
--- NOTE | ~2016-11-10 | HP ---
History And Physical [id number] [place]. [address] NAME: AXEL CAMPBELL : 36 STATUS : ADM IN [facility]#: [id number] AGE: 76 ADM/REG DATE : 11/11/16 MR#: [id number] REPORT SERV DATE: 11/11/16 DICTATED BY: SHREYAS YUN DATE: 11/11/16 REPORT STATUS : Draft TRANSCRIBED BY: MODL DATE: 11/11/16 DATE OF ADMISSION: 11/11/2016 HISTORY PRESENT ILLNESS: Ms. Campbell is a 76-year-old resident of a [facility] with a history of previous coronary disease and bypass grafting in 07/[address] Aiden Mccray. She had been followed by Dr. Giovanni Gracia until his assisted a few years ago. She has not seen a preconstruction manager since. She has had worsening anginal precordial chest pain over the last week. This is occurring at rest. It is responsive to nitroglycerin. She had a fairly severe episode, which prompted admission to [facility] with enzyme evidence of a non-ST elevation NE. She is currently on IV heparin and has not had recurrent chest pain. PAST MEDICAL HISTORY: 1. Coronary disease with coronary bypass grafting 2006. 2. History of DVT, PE on Coumadin. 3. Chronic diastolic congestive heart failure. 4. Hypertension. 5. Hypercholesterolemia. 6. Type 2 diabetes. 7. Gout. 8. Stage 3 chronic kidney disease. 9. History of multiple orthopedic problems of her lower extremities, which render her wheelchair bound. SOCIAL HISTORY: She does not smoke or drink alcohol. FAMILY HISTORY: The family history is negative for early coronary disease. REVIEW OF SYSTEMS: A complete review of systems was obtained, which is negative in detail except as mentioned above in the HPI. ALLERGIES: NO KNOWN DRUG ALLERGIES. MEDICATIONS: Include albuterol inhaler, multivitamins, Invokana, Advair Diskus, Neurontin, hydrocodone, insulin, metoprolol 25 mg twice a day, MiraLAX, Coumadin. PHYSICAL EXAMINATION: VITAL SIGNS: Blood pressure 125/54, heart rate of 77, respiratory rate of 14. GENERAL: Comfortable in no acute distress. HEENT: Anicteric. No xanthelasma. Lips without cyanosis. NECK: No JVD. Carotids 2+ and symmetric. No carotid bruits. LUNGS: CTA bilaterally. No wheezes or rhonchi. No accessory muscle use. COR: RRR. Normally placed PMI. Normal S1 and S2. No murmurs, rubs or gallops. ABD: Soft, nontender, nondistended. Normal bowel sounds. No abdominal bruits. EXT: No clubbing, cyanosis or edema 2+ and symmetric distal pulses. SKIN: Warm. Dry. No venous stasis changes. History And Physical [address] [address] NAME: AXEL CAMPBELL : 36 STATUS : ADM IN PAT#: [id number] AGE: 76 ADM/REG DATE : 11/11/16 MR#: [id number] REPORT SERV DATE: 11/11/16 DICTATED BY: SHREYAS YUN DATE: 11/11/16 REPORT STATUS : Draft TRANSCRIBED BY: JACOBY DATE: 11/11/16 MS: No kyphosis. NEURO/PSYCH: Oriented x3. No anxiety or depression. EKG: A 12-lead EKG shows sinus rhythm 75 beats per minute. Interventricular conduction delay noted. T-wave inversions and ST depressions are noted in the lateral precordial leads. Poor R-wave progression noted. LABORATORY STUDIES: Potassium of 4.7, creatinine of 1.61, hematocrit of 40. Troponin initially 0.91, increased to 1.67. IMPRESSION: This is a 76-year-old woman with multiple medical problems including diabetes and chronic renal insufficiency, who presents with a non-ST elevation NE. I have recommended IV heparin. We will cycle cardiac enzymes. We will check an echocardiogram. I had an extensive discussion with the patient and her son about options for medical management versus invasive management. They would prefer a more invasive approach. She is familiar with cardiac catheterization and would be willing to undergo stenting if needed. We will plan for cardiac catheterization once her INR decreases. CHAN/JACOBY Shreyas Yun M.D. / [id number] CC: Shreyas Garrett M.D., Ph.D, F.A.C.C.
[~2016-11-10 23:05] MED LIST changes: +ADVAIR250 INH; +L20 PO; +LEVAQUIN750 MG PO; +REFRESH OPH SO0.3 ML OPH; +RENA-VITE PO; +VENTOLIN HFA INH
[2016-11-11 01:04] LABS: BASOPHILS 0.2 %; BASOPHILS ABSOLUTE 0.02 10/3/uL (0.0-0.16); EOSINOPHILS 3.3 %; EOSINOPHILS ABSOLUTE 0.29 10/3/uL (0.0-0.53); ER CBC TAT 0 Hrs 07 Mins; HEMATOCRIT 40.2 % (36.0-48.0); HEMOGLOBIN 13.2 g/dL (12.0-16.0); IMMATURE GRANULOCYTES 0.5 %; IMMATURE GRANULOCYTES ABSOLUTE 0.04 10/3/uL (0.0-0.11); LYMPHOCYTES 14.5 %; LYMPHOCYTES ABSOLUTE 1.27 10/3/uL (0.67-4.30); MANUAL DIFF NO %; MEAN CORPUS HGB CONC 32.8 g/dL (32.0-36.0); MEAN CORPUSCULAR HEMOGLOB 29.6 pg (26.0-34.0); MEAN CORPUSCULAR VOLUME 90.1 fL (80-100); MONOCYTES 6.2 %; MONOCYTES ABSOLUTE 0.54 10/3/uL (0.21-1.20); NEUTROPHILS 75.3 %; PLATELET COUNT 211 10/3/uL (150-400); RBC DISTRIBUTION WIDTH 14.5 % (12.0-16.0); RED CELL COUNT 4.46 10/6/uL (4.0-5.6); WHITE BLOOD CELLS 8.8 10/3/uL (4.5-10.5)
[2016-11-11 01:10] LABS: INTERNATIONAL NORMAL RATI 1.9 UNITS (-)
[2016-11-11 01:11] LABS: PARTIAL THROMBO TIME 47.9 SEC (22.5-37.2)
[2016-11-11 01:13] LABS: PROTIME (NOT ORD) 21.3 SEC (12.0-14.5)
[2016-11-11 01:20] LABS: CALCIUM, SERUM 9.2 MG/DL (8.5-10.4); CHLORIDE, SERUM 104 MMOL/L (96-112); CO2 (CARBON DIOXIDE) 26 MMOL/L (24-34); CREATININE 1.61 MG/DL (0.55-1.02); GFR AFRICAN AMERICAN 35 ML/MIN (>=60); GFR NON AFRICAN AMERICAN 30 ML/MIN (>=60); GLUCOSE, SERUM 242 MG/DL (60-99); POTASSIUM, SERUM 4.7 MMOL/L (3.5-5.3); SODIUM, SERUM 138 MMOL/L (135-148)
[2016-11-11 01:21] LABS: BUN (BLOOD UREA NITROGEN) 31 MG/DL (6-23)
[2016-11-11 01:24] LABS: CHEST PAIN PROFILE TAT 0 Hrs 27 Mins; TROPONIN I 0.91 NG/ML (<0.05)
[2016-11-11] MEDS ORDERED: TOUJEO SC (02:31)
[2016-11-11] MEDS ORDERED: INSNOVN SC (02:32)
[2016-11-11] MEDS ORDERED: NOVOPEN SC (02:33)
[2016-11-11] MEDS ORDERED: INVOKANA300 MG PO (02:34)
[2016-11-11] MEDS ORDERED: B COMPLETE PO (02:34)
[2016-11-11] MEDS ORDERED: DOK PLUS (02:36)
[2016-11-11] MEDS ORDERED: CLARIT10 PO (02:37)
[2016-11-11] MEDS ORDERED: MIRALAX POWDER1 PKT PO (02:37)
[2016-11-11] MEDS ORDERED: FOLIC PO (02:38)
[2016-11-11] MEDS ORDERED: VITAMIN D31000 UNIT PO (02:38)
[2016-11-11] MEDS ORDERED: CYANO1000T PO (02:40)
[2016-11-11] MEDS ORDERED: Z300 PO (02:40)
[2016-11-11] MEDS ORDERED: NEUR300 PO (02:41)
[2016-11-11] MEDS ORDERED: LOP25 PO (02:41)
[2016-11-11] MEDS ORDERED: VITC500 PO (02:42)
[2016-11-11] MEDS ORDERED: C25 PO (02:43)
[2016-11-11] MEDS ORDERED: C5 PO (02:43)
[2016-11-11] MEDS ORDERED: ADVAIR250 INH (02:44)
[2016-11-11] MEDS ORDERED: VENTOLIN HFA INH (02:44)
[2016-11-11] MEDS ORDERED: NORCO1 TAB PO (02:45)
[2016-11-11] MEDS ORDERED: REFRESH OPH SO0.3 ML OPH (02:45)
[2016-11-11 06:16] LABS: CHOL/HDL RATIO(NOT ORDER) 4.5 (0-5)
[2016-11-11 06:19] LABS: TROPONIN I 1.76 NG/ML (<0.05)
[2016-11-11 10:37] LABS: ASCORBIC ACID (UR NOT ORDER) 40 (NEG); BILIRUBIN, URINE NEGATIVE (NEG); KETONE, URINE NEGATIVE (NEG); LEUKOCYTE ESTERASE(NOT OR MOD (NEG); WBC (NOT ORDERED) (RFLEX) 85 (0-5)
[2016-11-12 03:57] LABS: BASOPHILS 0.4 %; BASOPHILS ABSOLUTE 0.03 10/3/uL (0.0-0.16); EOSINOPHILS 3.3 %; EOSINOPHILS ABSOLUTE 0.28 10/3/uL (0.0-0.53); HEMATOCRIT 43.1 % (36.0-48.0); HEMOGLOBIN 13.9 g/dL (12.0-16.0); IMMATURE GRANULOCYTES 0.5 %; IMMATURE GRANULOCYTES ABSOLUTE 0.04 10/3/uL (0.0-0.11); LYMPHOCYTES 18.2 %; LYMPHOCYTES ABSOLUTE 1.53 10/3/uL (0.67-4.30); MEAN CORPUS HGB CONC 32.3 g/dL (32.0-36.0); MEAN CORPUSCULAR HEMOGLOB 29.1 pg (26.0-34.0); MEAN CORPUSCULAR VOLUME 90.4 fL (80-100); MEAN PLATELET VOLUME 12.1 fL (9.2-13.0); MONOCYTES 6.8 %; MONOCYTES ABSOLUTE 0.57 10/3/uL (0.21-1.20); NEUTROPHILS 70.8 %; NEUTROPHILS ABSOLUTE 5.94 10/3/uL (2.02-8.40); PLATELET COUNT 191 10/3/uL (150-400); RBC DISTRIBUTION WIDTH 14.6 % (12.0-16.0); RED CELL COUNT 4.77 10/6/uL (4.0-5.6); WHITE BLOOD CELLS 8.4 10/3/uL (4.5-10.5)
[2016-11-12 03:58] LABS: MANUAL DIFF NO %
[2016-11-12 04:08] LABS: INTERNATIONAL NORMAL RATI 1.9 UNITS (-); PARTIAL THROMBO TIME 56.7 SEC (22.5-37.2); PROTIME (NOT ORD) 21.3 SEC (12.0-14.5)
[2016-11-12 04:13] LABS: BUN (BLOOD UREA NITROGEN) 26 MG/DL (6-23); CHLORIDE, SERUM 103 MMOL/L (96-112); CHOL/HDL RATIO(NOT ORDER) 4.4 (0-5); CHOLESTEROL 161 MG/DL (< 200); CO2 (CARBON DIOXIDE) 25 MMOL/L (24-34); CREATININE 1.42 MG/DL (0.55-1.02); GFR AFRICAN AMERICAN 41 ML/MIN (>=60); GFR NON AFRICAN AMERICAN 35 ML/MIN (>=60); GLUCOSE, SERUM 140 MG/DL (60-99); HDL CHOLESTEROL 37 MG/DL (> 49); LDL CHOLESTEROL 86 MG/DL (< 130); NON-HDL CHOLESTEROL 124 MG/DL (< 160); POTASSIUM, SERUM 4.2 MMOL/L (3.5-5.3); SODIUM, SERUM 137 MMOL/L (135-148); TRIGLYCERIDE 190 MG/DL (< 150)
[2016-11-13 05:17] LABS: INTERNATIONAL NORMAL RATI 1.7 UNITS (-); PROTIME (NOT ORD) 19.5 SEC (12.0-14.5)
[2016-11-13 05:18] LABS: BASOPHILS 0.4 %; BASOPHILS ABSOLUTE 0.03 10/3/uL (0.0-0.16); EOSINOPHILS 3.5 %; EOSINOPHILS ABSOLUTE 0.26 10/3/uL (0.0-0.53); HEMATOCRIT 43.7 % (36.0-48.0); HEMOGLOBIN 14.1 g/dL (12.0-16.0); IMMATURE GRANULOCYTES 0.4 %; IMMATURE GRANULOCYTES ABSOLUTE 0.03 10/3/uL (0.0-0.11); LYMPHOCYTES 18.3 %; LYMPHOCYTES ABSOLUTE 1.35 10/3/uL (0.67-4.30); MEAN CORPUS HGB CONC 32.3 g/dL (32.0-36.0); MEAN CORPUSCULAR HEMOGLOB 29.3 pg (26.0-34.0); MEAN CORPUSCULAR VOLUME 90.9 fL (80-100); MEAN PLATELET VOLUME 11.6 fL (9.2-13.0); MONOCYTES 6.2 %; MONOCYTES ABSOLUTE 0.46 10/3/uL (0.21-1.20); NEUTROPHILS 71.2 %; NEUTROPHILS ABSOLUTE 5.25 10/3/uL (2.02-8.40); PLATELET COUNT 202 10/3/uL (150-400); RBC DISTRIBUTION WIDTH 14.4 % (12.0-16.0); RED CELL COUNT 4.81 10/6/uL (4.0-5.6); WHITE BLOOD CELLS 7.4 10/3/uL (4.5-10.5)
[2016-11-13 05:19] LABS: MANUAL DIFF NO %
[2016-11-13 05:28] LABS: BUN (BLOOD UREA NITROGEN) 26 MG/DL (6-23); CALCIUM, SERUM 9.1 MG/DL (8.5-10.4); CHLORIDE, SERUM 104 MMOL/L (96-112); CHOL/HDL RATIO(NOT ORDER) 3.7 (0-5); CHOLESTEROL 141 MG/DL (< 200); CO2 (CARBON DIOXIDE) 24 MMOL/L (24-34); CREATININE 1.43 MG/DL (0.55-1.02); GFR AFRICAN AMERICAN 41 ML/MIN (>=60); GFR NON AFRICAN AMERICAN 35 ML/MIN (>=60); GLUCOSE, SERUM 133 MG/DL (60-99); HDL CHOLESTEROL 38 MG/DL (> 49); LDL CHOLESTEROL 70 MG/DL (< 130); NON-HDL CHOLESTEROL 103 MG/DL (< 160); POTASSIUM, SERUM 4.1 MMOL/L (3.5-5.3); SODIUM, SERUM 136 MMOL/L (135-148); TRIGLYCERIDE 167 MG/DL (< 150)
[2016-11-14 03:10] LABS: BASOPHILS 0.2 %; BASOPHILS ABSOLUTE 0.02 10/3/uL (0.0-0.16); EOSINOPHILS ABSOLUTE 0.26 10/3/uL (0.0-0.53); HEMATOCRIT 41.3 % (36.0-48.0); HEMOGLOBIN 13.6 g/dL (12.0-16.0); IMMATURE GRANULOCYTES 0.2 %; IMMATURE GRANULOCYTES ABSOLUTE 0.02 10/3/uL (0.0-0.11); LYMPHOCYTES 15.6 %; LYMPHOCYTES ABSOLUTE 1.36 10/3/uL (0.67-4.30); MEAN CORPUS HGB CONC 32.9 g/dL (32.0-36.0); MEAN CORPUSCULAR HEMOGLOB 29.6 pg (26.0-34.0); MEAN CORPUSCULAR VOLUME 89.8 fL (80-100); MEAN PLATELET VOLUME 11.3 fL (9.2-13.0); MONOCYTES 8.3 %; MONOCYTES ABSOLUTE 0.72 10/3/uL (0.21-1.20); NEUTROPHILS 72.7 %; NEUTROPHILS ABSOLUTE 6.32 10/3/uL (2.02-8.40); PLATELET COUNT 210 10/3/uL (150-400); RBC DISTRIBUTION WIDTH 14.4 % (12.0-16.0); WHITE BLOOD CELLS 8.7 10/3/uL (4.5-10.5)
[2016-11-14 03:12] LABS: MANUAL DIFF NO %
[2016-11-14 03:18] LABS: INTERNATIONAL NORMAL RATI 1.5 UNITS (-); PROTIME (NOT ORD) 18.4 SEC (12.0-14.5)
[2016-11-14 03:25] LABS: BUN (BLOOD UREA NITROGEN) 26 MG/DL (6-23); CALCIUM, SERUM 8.8 MG/DL (8.5-10.4); CHLORIDE, SERUM 103 MMOL/L (96-112); CO2 (CARBON DIOXIDE) 26 MMOL/L (24-34); CREATININE 1.45 MG/DL (0.55-1.02); GFR AFRICAN AMERICAN 40 ML/MIN (>=60); GFR NON AFRICAN AMERICAN 34 ML/MIN (>=60); GLUCOSE, SERUM 137 MG/DL (60-99); POTASSIUM, SERUM 4.1 MMOL/L (3.5-5.3); SODIUM, SERUM 137 MMOL/L (135-148)
[2016-11-14 03:49] LABS: PARTIAL THROMBO TIME 58.7 SEC (22.5-37.2)
== END 2016-11-14 17:40 | disposition home or self-care (01) | DRG 247 ==
LOC: ER 23:05 → SSU1 11-11 02:08 → 6NO 11-11 02:08 → SSU1 11-13 11:52
PROVIDERS: Internal Medicine Cardiovascular Disease; Student in an Organized Health Care Education/Training Program
PROC: 027034Z Dilation of Coronary Artery, One Artery with Drug-eluting Intraluminal Device, Percutaneous Approach (ICD-10-PCS; principal; 2016-11-13)
PROC: 4A023N7 Measurement of Cardiac Sampling and Pressure, Left Heart, Percutaneous Approach (ICD-10-PCS; 2016-11-13)
PROC: B2111ZZ Fluoroscopy of Multiple Coronary Arteries using Low Osmolar Contrast (ICD-10-PCS; 2016-11-13)
PROC: B2121ZZ Fluoroscopy of Single Coronary Artery Bypass Graft using Low Osmolar Contrast (ICD-10-PCS; 2016-11-13)
DX: I21.4 Non-ST elevation (NSTEMI) myocardial infarction (principal); I13.0 Hypertensive heart and chronic kidney disease with heart failure and stage 1 through stage 4 chronic kidney disease, or unspecified chronic kidney disease; I50.32 Chronic diastolic (congestive) heart failure; E11.22 Type 2 diabetes mellitus with diabetic chronic kidney disease; N39.0 Urinary tract infection, site not specified; N18.3 Chronic kidney disease, stage 3 (moderate); M10.9 Gout, unspecified; I25.10 Atherosclerotic heart disease of native coronary artery without angina pectoris; E78.00 Pure hypercholesterolemia, unspecified; Z79.4 Long term (current) use of insulin; Z95.1 Presence of aortocoronary bypass graft; Z86.718 Personal history of other venous thrombosis and embolism; Z79.01 Long term (current) use of anticoagulants; Z86.711 Personal history of pulmonary embolism
CPT/HCPCS: 71010; 80048; 80061; 81001; 82962; 83735; 83880; 84460; 84484; 85025; 85347; 85610; 85730; 87077; 87086; 87186; 93005; 93459; 94640; 96374; 97161-GP; 97530-GP; 99152; 99153; 99285; A9270-GY; C1725; C1769; C1874; C1887; C1894; C8929; C9600; G8978-CL-GP; G8979-CJ-GP; J2250; J3010; Q9957; Q9967